=== PATIENT | female | born 1990 | race Caucasian/White ===

== ENCOUNTER 2023-10-19 16:59 | Emergency (ER) | payer BC, SELFPAY ==
--- NOTE | ~2023-10-19 | XR_ITS ---
EXAMINATION: XR ankle LT min 3V XR foot LT 2V CLINICAL INFORMATION: Ankle pain, fall, fracture, twisted ankle COMPARISON: None. TECHNIQUE: AP and oblique views left ankle, 2 images. AP, lateral and oblique views of the left foot, 3 images. FINDINGS: Left ankle: Oblique fracture through the distal fibular diaphysis with intra-articular extension to the lateral ankle mortise. Ankle mortise remains symmetric. Soft tissue swelling over the lateral malleolus. No radiopaque foreign body. Left foot: No ankle joint effusion. Osseous structures of the foot are in anatomic alignment with joint spaces maintained. No acute fracture in the foot. No focal soft tissue swelling in the foot. No radiopaque foreign body. XR/XR foot LT 2V IMPRESSION: 1. Oblique fracture through the distal fibular diaphysis with intra-articular extension to the lateral ankle mortise. 2. No acute fracture in the left foot.
--- NOTE | ~2023-10-19 | XR_ITS ---
EXAMINATION: XR ankle LT min 3V XR foot LT 2V CLINICAL INFORMATION: Ankle pain, fall, fracture, twisted ankle COMPARISON: None. TECHNIQUE: AP and oblique views left ankle, 2 images. AP, lateral and oblique views of the left foot, 3 images. FINDINGS: Left ankle: Oblique fracture through the distal fibular diaphysis with intra-articular extension to the lateral ankle mortise. Ankle mortise remains symmetric. Soft tissue swelling over the lateral malleolus. No radiopaque foreign body. Left foot: No ankle joint effusion. Osseous structures of the foot are in anatomic alignment with joint spaces maintained. No acute fracture in the foot. No focal soft tissue swelling in the foot. No radiopaque foreign body. XR/XR ankle LT min 3V IMPRESSION: 1. Oblique fracture through the distal fibular diaphysis with intra-articular extension to the lateral ankle mortise. 2. No acute fracture in the left foot.
[2023-10-19 17:08] VITALS: BP 105/65; PULSE 78; RESP 16; TEMP 36.7; O2SAT 98; BMI 26.6
--- NOTE | 2023-10-19 17:14 | ED_ITS ---
HPI - General Adult General Chief complaint: Extremity Injury, Lower Stated complaint: twisted ankle, heard a crack Time Seen by Provider: 10/19/23 18:05 Related Data Previous Rx's ?Medication ?Instructions ?Recorded oxycodone 5 mg tablet 5 mg PO Q6H PRN pain #20 tabs 10/19/23 Allergies Allergy/AdvReac Type Severity Reaction Status Date / Time No Known Allergies Allergy Verified 10/19/23 17:13 [facility] Social History Social History Advance Directives: No Advance Directives Information Provided: No Do you have a plan to hurt others: No Plan Physical Exam ED Vital Signs: Vital Signs - 24 hr 10/19/23 17:08 10/19/23 18:42 Temperature 98.1 F 98.1 F Pulse Rate 78 78 Respiratory Rate 16 16 Blood Pressure 105/65 105/65 Pulse Oximetry 98 98 Oxygen Delivery Method Room Air Room Air BMI result Body Mass Index 26.6 Course Course Course Narrative: RME: done by DAVID Macias. Patient states playing with her dog and hearing crack in her ankle while twtisting her ankle to prevent a fall. patient denies hitting head or loss of consciosuness. xrays ordered Medications Administered Discontinued Medications Generic Name Dose Route Start Last Admin Trade Name Freq PRN Reason Stop Dose Admin Ibuprofen 600 mg 10/19/23 18:13 10/19/23 18:22 Ibuprofen 600 Mg Tablet PO 10/19/23 18:14 600 mg ONCE ONE Administration Oxycodone HCl 10 mg 10/19/23 18:13 10/19/23 18:22 Oxycodone Hcl Immed Release 5 Mg Tablet PO 10/19/23 18:14 10 mg ONCE ONE Administration Discharge Plan Discharge Clinical Impression: Closed left fibular fracture Patient Disposition: Home, Self-Care Instructions: Ankle Fracture (ED) Additional Instructions: Wear the boot and use crutches for ambulation Keep left leg elevated Pain medication as prescribed Usually takes 6-8 weeks to heal completely Follow with ortho Prescriptions: New oxycodone 5 mg tablet 5 mg PO Q6H PRN (Reason: pain) Qty: 20 0RF Rx Instructions: Partial Fill upon patient request. Referrals: Kirby Ramires MD [Physician] - 2 weeks Stand Alone Forms: Work/School Release Interventions: ED Discharge Assessment Last Done: 10/19/23 18:42 Discharge Date/Time: 10/19/23 18:42 Print Language: Citizen Of [place]
[2023-10-19] MEDS: Ibuprofen 600 MG TABLET PO (18:22)
[2023-10-19] MEDS: oxyCODONE HCl Immed Release 5 MG TABLET 10 MG PO (18:22)
--- NOTE | 2023-10-19 18:24 | ED_ITS ---
HPI - Extremity Injury (Lower) General Chief Complaint: Extremity Injury, Lower Stated Complaint: twisted ankle, heard a crack Time Seen by Provider: 10/19/23 18:05 Source: patient Mode of arrival: ambulatory Limitations: no limitations History of Present Illness ED Provider: mihaela HPI Narrative: Apparently patient was playing with her dog tripped heard the crack in the left ankle lateral malleolus comes here with increased swelling and painful to ambulate Related Data Previous Rx's ?Medication ?Instructions ?Recorded oxycodone 5 mg tablet 5 mg PO Q6H PRN pain #20 tabs 10/19/23 Allergies Allergy/AdvReac Type Severity Reaction Status Date / Time No Known Allergies Allergy Verified 10/19/23 17:13 Review of Systems 2 Review of Systems: Yes all other systems are reviewed and are negative [facility] Social History Social History Advance Directives: No Advance Directives Information Provided: No Do you have a plan to hurt others: No Plan Physical Exam 2 Vital Signs: Vital Signs: Last Vital Signs Temp 98.1 F 10/19/23 17:08 Pulse 78 10/19/23 17:08 Resp 16 10/19/23 17:08 BP 105/65 10/19/23 17:08 Pulse Ox 98 10/19/23 17:08 O2 Del Method Room Air 10/19/23 17:08 BMI result Body Mass Index 26.6 Extrem: Ankle/foot/toe images: 1. Swelling and tenderness lateral malleolus left foot neurovascular intact Medications Administered Discontinued Medications Generic Name Dose Route Start Last Admin Trade Name Freq PRN Reason Stop Dose Admin Ibuprofen 600 mg 10/19/23 18:13 10/19/23 18:22 Ibuprofen 600 Mg Tablet PO 10/19/23 18:14 600 mg ONCE ONE Administration Oxycodone HCl 10 mg 10/19/23 18:13 10/19/23 18:22 Oxycodone Hcl Immed Release 5 Mg Tablet PO 10/19/23 18:14 10 mg ONCE ONE Administration Medical Decision Making Medical Decision Making [facility] Narrative: Patient with left lower and fibula fracture ortho boot was given to the patient along with crutches advised to follow up with Orthopedics Independent Interpretation I performed an independent interpretation of an: Plain X-Ray Radiology Impression Discussion of test interpretation with radiology: I have reviewed the radiologist's reading. Discharge Plan Discharge Clinical Impression: Closed left fibular fracture Patient Disposition: Home, Self-Care Instructions: Ankle Fracture (ED) Additional Instructions: Wear the boot and use crutches for ambulation Keep left leg elevated Pain medication as prescribed Usually takes 6-8 weeks to heal completely Follow with ortho Prescriptions: New oxycodone 5 mg tablet 5 mg PO Q6H PRN (Reason: pain) Qty: 20 0RF Rx Instructions: Partial Fill upon patient request. Referrals: Kirby Ramires MD [Physician] - 2 weeks Print Language: Spanish
[2023-10-19 18:42] VITALS: BP 105/65; PULSE 78; RESP 16; TEMP 36.7; O2SAT 98
== END 2023-10-19 18:42 | disposition home or self-care (01) ==
PROVIDERS: Emergency Provider Internal Medicine
DX: S82.832A Other fracture of upper and lower end of left fibula, initial encounter for closed fracture (principal); X58.XXXA Exposure to other specified factors, initial encounter; Y93.89 Activity, other specified; Y92.9 Unspecified place or not applicable; Y99.9 Unspecified external cause status
CPT/HCPCS: 73610; 73620; 99283

== ENCOUNTER 2023-10-22 10:17 | Outpatient (REF) | payer BC, SELFPAY ==
--- NOTE | ~2023-10-22 | XR_ITS ---
EXAMINATION: XR ANKLE, LEFT CLINICAL INFORMATION: Left ankle pain. COMPARISON: Left ankle and foot radiographs dated 10/19/2023. TECHNIQUE: AP, lateral, and mortise views of the left ankle. FINDINGS: Oblique, mildly displaced fracture redemonstrated through the distal fibular metaphysis in unchanged anatomic alignment with lateral cortical step off measuring up to 0.2 cm. Mild lateral subluxation of the talar dome in relation to the tibial plafond. Anatomic alignment is similar when compared to the prior radiographs. No significant interval new bone/callus formation. No new fracture. No joint space narrowing or marginal osteophytes. Circumferential soft tissue swelling. XR/XR ankle LT min 3V IMPRESSION: Distal fibular fracture in unchanged anatomic alignment with mild lateral subluxation of the talar dome in relation to the tibial plafond. No significant interval new bone/callus formation.
== END 2023-10-22 10:18 | disposition home or self-care (01) ==
LOC: HO.HOSX 10:17
PROVIDERS: Visit Provider Physician Assistant
DX: M25.572 Pain in left ankle and joints of left foot (principal)
CPT/HCPCS: 73610

== ENCOUNTER 2023-10-22 14:02 | Outpatient (AMB) | payer BC, SELFPAY ==
--- NOTE | 2023-10-22 14:19 | A.OFFVIS_ITS ---
Intake Visit Reasons: FC- left ankle fx, 10/19/23 Intake Note: Sammy is a 33 year old female who presents today for a evaluation of her left ankle fx, DOI 10/19/23. Patient reports playing with her dog and tried to move out the way until she missed stepped and heard a crack in her left ankle. Currently having some mild pain in her ankle, denies numbness and tingling. Allergies No Known Allergies Allergy (Verified 10/22/23 14:21) HPI HPI FC- left ankle fx, 10/19/23: Details: 33-year-old female who presents in the office today, as a new patient, for evaluation of left ankle pain. She was seen in the ER on 10/19/2023 with increased swelling and pain while ambulating status post tripping over her dog causing her to twist her left ankle.?She was placed in the boot and was supplied crutches for ambulation.?She was prescribed oxycodone 5 mg PO Q6H PRN.? ? While in the office today, the patient reports she was playing with her dog when she attempted ?to move out of the way? causing her to miss a step. She reports she ?heard a crack? in the left ankle. She reports mild pain in the office. She denies numbness or tingling.? [facility] Social History (Updated 10/22/23 @ 14:22 by Patience Owusu) Alcohol intake: never Patient Tobacco Use Status: Former Tobacco user Years Smoked: 3 weeks quit Review of Systems Const All systems reviewed & are unremarkable except as noted in HPI and below Physical Exam Const General: cooperative and no acute distress Orientation/consciousness: patient oriented x3 Resp Effort & Inspection: normal respiratory effort and able to speak in complete sentences Cardio Peripheral pulses: Peripheral pulses 2+ throughout Skin General skin exam: no rashes or lesions noted Neuro General: patient oriented x3 Extrem Other: Left ankle: Moderate edema along the lateral malleolus. Able to?slightly dorsiflex and plantarflex but it is limited due to pain. Sensation intact. Pedal pulse intact. Assessment & Plan Assessment & Plan (1) Fracture of distal end of left fibula: Code(s): S82.832A - Other fracture of upper and lower end of left fibula, initial encounter for closed fracture Category: Medical Plan Ms. Kothari is a 33-year-old female who presents in the office today, as a new patient, for evaluation of left ankle pain. She was seen in the ER on 10/19/2023 with increased swelling and pain while ambulating status post tripping over her dog causing her to twist her left ankle.?She was placed in the boot and was supplied crutches for ambulation.?She was prescribed oxycodone 5 mg PO Q6H PRN.? ? While in the office today, the patient reports she was playing with her dog when she attempted ?to move out of the way? causing her to miss a step. She reports she ?heard a crack? in the left ankle. She reports mild pain in the office. She denies numbness or tingling. Dr. Ramires was available to speak with me but was unable to see the patient, and a collaborative treatment plan was made. The patient was placed back into the walk boot, she may weight bearing as tolerated. She does have an upcoming vacation planned in about 6 weeks to [place].?At her follow-up appointment, we will evaluate the patient for the possibility of being placed in a lace-up ankle brace. Follow-up will be in 4 weeks with repeat x-rays, or sooner if needed. ? X-rays of the?left ankle which were obtained while in the office today and were reviewed by me, Elen Nathan PA-C, redemonstrated distal fibular fracture. ? Orders: Orders XR ankle LT min 3V 10/22/23 M25.579 - Pain in unspecified ankle and joints of unspecified foot Patient Instructions: Scribed by Long Hardin medical claims manager, for Loida Nathan PA-C on 10/22/2023 at?2:30 PM EST.? Corrections made by Patricia Velarde medical claims manager, for Loida Nathan PA-C on 10/22/2023 at 3:361 pm, EST.? Coding Level of Care Code New Pt Level 4 (85126) Diagnoses Fracture of distal end of left fibula S82.832A
== END 2023-10-22 14:53 | disposition home or self-care (01) ==
PROVIDERS: Visit Provider Physician Assistant
DX: S82.832A Other fracture of upper and lower end of left fibula, initial encounter for closed fracture (principal)
CPT/HCPCS: 99203

== ENCOUNTER 2023-11-06 09:18 | Outpatient (REF) | payer BC, SELFPAY ==
--- NOTE | ~2023-11-06 | XR_ITS ---
EXAMINATION: XR ANKLE, RIGHT XR ANKLE, LEFT CLINICAL INFORMATION: Ankle pain. COMPARISON: Multiple prior left ankle radiographs, most recent dated 10/22/2023. TECHNIQUE: AP, lateral, and mortise views of the right and left ankle were obtained. FINDINGS: RIGHT ANKLE: No acute fracture or dislocation. The ankle mortise is maintained. No joint space narrowing or marginal osteophytes. No osseous erosion. No abnormal soft tissue calcification. LEFT ANKLE: Redemonstration of an oblique distal fibular diametaphyseal fracture in unchanged anatomic alignment with mild lateral fixation of the tibial plafond. Anatomic alignment is similar when compared to the prior radiographs. Persistent lateral cortical step off measures up to 0.2 cm. No significant interval new bone/callus formation. Persistent circumferential soft tissue swelling. XR/XR ankle RT min 3V IMPRESSION: RIGHT ANKLE: Unremarkable examination. LEFT ANKLE: Distal fibular fracture in unchanged anatomic alignment with mild lateral fixation of the tibial plafond. Persistent circumferential soft tissue swelling. No significant interval new bone/callus formation.
--- NOTE | ~2023-11-06 | XR_ITS ---
EXAMINATION: XR ANKLE, RIGHT XR ANKLE, LEFT CLINICAL INFORMATION: Ankle pain. COMPARISON: Multiple prior left ankle radiographs, most recent dated 10/22/2023. TECHNIQUE: AP, lateral, and mortise views of the right and left ankle were obtained. FINDINGS: RIGHT ANKLE: No acute fracture or dislocation. The ankle mortise is maintained. No joint space narrowing or marginal osteophytes. No osseous erosion. No abnormal soft tissue calcification. LEFT ANKLE: Redemonstration of an oblique distal fibular diametaphyseal fracture in unchanged anatomic alignment with mild lateral fixation of the tibial plafond. Anatomic alignment is similar when compared to the prior radiographs. Persistent lateral cortical step off measures up to 0.2 cm. No significant interval new bone/callus formation. Persistent circumferential soft tissue swelling. XR/XR ankle LT min 3V IMPRESSION: RIGHT ANKLE: Unremarkable examination. LEFT ANKLE: Distal fibular fracture in unchanged anatomic alignment with mild lateral fixation of the tibial plafond. Persistent circumferential soft tissue swelling. No significant interval new bone/callus formation.
== END 2023-11-06 09:19 | disposition home or self-care (01) ==
LOC: HO.HOSX 09:18
PROVIDERS: Visit Provider Physician Assistant
DX: S82.832D Other fracture of upper and lower end of left fibula, subsequent encounter for closed fracture with routine healing (principal); M25.571 Pain in right ankle and joints of right foot
CPT/HCPCS: 29405; 73610

== ENCOUNTER 2023-11-06 13:16 | Outpatient (AMB) | payer BC, SELFPAY ==
--- NOTE | 2023-11-06 13:28 | A.OFFVIS_ITS ---
Vital Signs 11/06/23 13:32 Height 5 ft 3 in Weight 150 lb BMI 26.6 Intake Visit Reasons: FC- left ankle fx, 10/19/23, repeat x-rays Intake Note: Sammy is a 33 year old female who presents today for a evaluation of her left ankle fx, DOI 10/19/23. Currently having some inflammation around her ankle about few days ago. Allergies No Known Allergies Allergy (Verified 10/22/23 14:21) HPI HPI FC- left ankle fx, 10/19/23, repeat x-rays: Details: 33-year-old female who presents in the office today for a follow-up of a left distal fibula fracture, which occurred on 10/19/2023 status post tripping over her dog causing her to twist her left ankle. I last saw the patient in the office on 10/22/2023 when she was placed back into the walking boot to weight bear as tolerated. ? ? Patient has a vacation to [place] on 11/30/2023. She would like to be able to go dance and ?be free?. She expressed wanted to go on her trip without the boot and then return in a week to discuss surgery.? ? While in the office today, the patient reported inflammation in the ankle beginning a few days prior. She reports she has been wearing the boot. She confirms weight bearing on the left lower extremity wth crutches. ? [facility] Social History (Updated 11/06/23 @ 13:31 by Patience Owusu) Alcohol intake: never Patient Tobacco Use Status: Former Tobacco user Years Smoked: 3 weeks quit Current occupational status: employed Current occupation: Sales Review of Systems Const All systems reviewed & are unremarkable except as noted in HPI and below Physical Exam Vital Signs: BMI result Body Mass Index 26.6 Const General: cooperative and no acute distress Orientation/consciousness: patient oriented x3 Resp Effort & Inspection: normal respiratory effort and able to speak in complete sentences Cardio Peripheral pulses: Peripheral pulses 2+ throughout Skin General skin exam: no rashes or lesions noted Neuro General: patient oriented x3 Extrem Other: Left ankle: Mild edema along the lateral malleolus. Able to?slightly dorsiflex and plantarflex but it is limited due to pain. Sensation intact. Pedal pulse intact. Office Procedures Casting/Splints [id number] Leg Cast Application Procedure code (CPT) selection complete Assessment & Plan Assessment & Plan (1) Fracture of distal end of left fibula: Code(s): S82.832A - Other fracture of upper and lower end of left fibula, initial encounter for closed fracture Category: Medical Plan Ms. Kothari is a 33-year-old female who presents in the office today for a follow-up of a left distal fibula fracture, which occurred on 10/19/2023 status post tripping over her dog causing her to twist her left ankle. I last saw the patient in the office on 10/22/2023 when she was placed back into the walking mp ot to weight bear as tolerated. ? ? Patient has a vacation to [place] on 11/30/2023. She would like to be able to go dance and ?be free?. She expressed going on her trip without the boot and then return in a week to discuss surgery.? ? While in the office today, the patient reported inflammation in the ankle beginning a few days prior. She reports she has been wearing the boot. She confirms weight bearing on the left lower extremity.? ? Dr. Ramires was available to see the patient while in the office today and a collaborative treatment plan was made. Due to the patient having a scheduled trip to [place] on 11/30/2023 we have decided to x-ray the right ankle for comparison purposes. Upon review of the x-rays we have agreed to treat the left ankle non-operatively. She will be placed in a short leg cast, custom made, while in the office today. She will remain non-weight bearing. Patient was educated on cast maintenance with instructions to keep the cast clean, dry, and intact. However, should the cast become wet, dirty, or there is a concern please call the office immediately for a cast change. She was sent home with her walking boot and asked to bring it with her for her follow-up with anticipation of transitioning into it at that time. Follow-up will be on 11/[address] Ramires in the office, or sooner if needed. ? ? X-rays of the left ankle which were obtained while in the office today and were reviewed by me, Loida Nathan PA-C, revealed redemonstration of lateral malleolar fracture.? Orders: Orders XR ankle LT min 3V Today M25.579 - Pain in unspecified ankle and joints of unspecified foot XR ankle RT min 3V Today M25.579 - Pain in unspecified ankle and joints of unspecified foot Patient Instructions: Scribed by Patricia Velarde medical support assistant, for Loida Nathan PA-C on 11/06/2023 at 1:18 pm, EST.? Coding Level of Care Code Global (37445) Diagnoses Fracture of distal end of left fibula S82.832A CPT Codes Casting - CPT: 35631-Lsgtk Leg Cast Application ([id number])
[2023-11-06 13:32] VITALS: BMI 26.6
== END 2023-11-06 14:55 | disposition home or self-care (01) ==
PROVIDERS: Visit Provider Physician Assistant
DX: S82.832A Other fracture of upper and lower end of left fibula, initial encounter for closed fracture (principal)
CPT/HCPCS: 29405; 99213

== ENCOUNTER 2023-11-27 10:06 | Outpatient (AMB) | payer BC, SELFPAY ==
--- NOTE | 2023-11-27 10:30 | MHC.OFFVIS ---
Vital Signs 11/27/23 10:31 Height 5 ft 3 in Weight 150 lb BMI 26.6 Intake Visit Reasons: OV - left distal fibula fx, DOI 10/19/23 Intake Note: Sammy is a 33 year old female who presents today for a evaluation of her left distal fibula fx, DOI 10/19/23. Currently she is having no pain at the moment. Allergies No Known Allergies Allergy (Verified 11/27/23 10:31) HPI HPI OV - left distal fibula fx, DOI 10/19/23: Details: 33-year-old female who presents in the office today for a follow-up of a left distal fibula fracture, which occurred on 10/19/2023 status post tripping over her dog causing her to twist her left ankle. I last saw the patient in the office on 11/06/23 when she was placed in a short leg cast and was instructed to remain non-weight bearing. ? ? While in the office today, the patient reports she is doing better with no pain. She expresses she does not want to wear a walking boot due to it being uncomfortable and bulky.? ? Patient has a vacation to [place] on 11/30/2023.? [facility] Social History Alcohol intake: never Patient Tobacco Use Status: Former Tobacco user Years Smoked: 3 weeks quit Current occupational status: employed Current occupation: Sales Review of Systems Const All systems reviewed & are unremarkable except as noted in HPI and below Physical Exam Vital Signs: BMI result Body Mass Index 26.6 Const General: cooperative, healthy appearing and no acute distress Resp Effort & Inspection: normal respiratory effort and able to speak in complete sentences Cardio Rate: regular rate Peripheral pulses: Peripheral pulses 2+ throughout GI Palpation (GI): Soft to palpation Skin Lesions: no lesions Rashes: no rashes Extrem Other: Left ankle: Normal to inspection. No ecchymosis, erythema, or edema. No tenderness to palpation over the distal fibula over the fracture site. Slight stiffness with ROM in all planes. Negative anterior drawer. Sensation intact. Pedal Pulse intact.?? Assessment & Plan Assessment & Plan (1) Fracture of distal end of left fibula: Code(s): S82.832A - Other fracture of upper and lower end of left fibula, initial encounter for closed fracture Category: Medical Plan Ms. Kothari is a 33-year-old female who presents in the office today for a follow-up of a left distal fibula fracture, which occurred on 10/19/2023 status post tripping over her dog causing her to twist her left ankle. I last saw the patient in the office on 11/06/23 when she was placed in a short leg cast and was instructed to remain non-weight bearing. ? ? While in the office today, the patient reports she is doing better with no pain. She expresses she does not want to wear a walking boot due to it being uncomfortable and bulky.? ? Patient has a vacation to [place] on 11/30/2023.? ? The case was discussed, and imaging was reviewed by Dr. Ramires who was able to speak with me but unable to see the patient; and a collaborative treatment plan was made. She will be placed in a tall walking boot to be worn until she leaves for her trip on 11/30/23. She was supplied with a lace-up ankle brace, off the shelf. We discussed using pain as her guide while on her trip. Follow-up will be in four weeks, or sooner if needed. ? ? X-rays of the left ankle which were obtained while in the office today and were reviewed by me, Loida Nathan PA-C, revealed routine healing of a left distal fibula fracture. ? Orders: Orders XR ankle LT min 3V Today M25.579 - Pain in unspecified ankle and joints of unspecified foot Patient Instructions: Scribed by Patricia Velarde vice president medical affairs, for Loida Nathan PA-C on 11/27/2023 at 10:20 am, EST.? Coding Level of Care Code Global (42711) Diagnoses Fracture of distal end of left fibula S82.832A
[2023-11-27 10:31] VITALS: BMI 26.6
== END 2023-11-27 11:02 | disposition home or self-care (01) ==
PROVIDERS: Visit Provider Physician Assistant
DX: S82.832A Other fracture of upper and lower end of left fibula, initial encounter for closed fracture (principal)
CPT/HCPCS: 99213

== ENCOUNTER 2023-11-27 12:53 | Outpatient (REF) | payer BC, SELFPAY ==
--- NOTE | ~2023-11-27 | XR_ITS ---
EXAMINATION: XR ANKLE, LEFT CLINICAL INFORMATION: Pain ankle. COMPARISON: November 06, 2023. TECHNIQUE: AP, lateral, and mortise views of the left ankle. FINDINGS: Redemonstration of oblique distal fibular diametaphyseal fracture with similar anatomic alignment. Anatomic alignment is similar. Persistent lateral cortical step-off measuring up to 2 mm. Diffuse soft tissue swelling. XR/XR ankle LT min 3V IMPRESSION: Redemonstration of oblique distal fibular diametaphyseal fracture with similar anatomic alignment.
== END 2023-11-27 12:54 | disposition home or self-care (01) ==
LOC: HO.HOSX 12:53
PROVIDERS: Visit Provider Physician Assistant
DX: M25.572 Pain in left ankle and joints of left foot (principal)
CPT/HCPCS: 73610

== ENCOUNTER 2023-12-25 10:27 | Outpatient (REF) | payer BC, SELFPAY | END 2023-12-25 10:28 | disposition home or self-care (01) | LOC: HO.HOSX 10:27 | PROVIDERS: Visit Provider Physician Assistant | DX: Z13.89 Encounter for screening for other disorder (principal) ==

== ENCOUNTER 2023-12-25 11:09 | Outpatient (AMB) | payer BC, SELFPAY ==
--- NOTE | 2023-12-25 11:16 | A.OFFVIS_ITS ---
Intake Visit Reasons: OV - left distal fibula fx, DOI 10/19/23 Intake Note: Sammy is a 33 year old female who presents today for a follow up s/p left distal fibula fx, DOI 10/19/23. Currently she is having some mild pain in her ankle. Lace up ankle brace wasn't giving her relief but the boot provided her more relief. Allergies No Known Allergies Allergy (Verified 12/25/23 11:21) HPI HPI OV - left distal fibula fx, DOI 10/19/23: Details: 33-year-old female who presents in the office today for a follow-up of a left distal fibula fracture, which occurred on 10/19/2023 status post tripping over her dog causing her to twist her left ankle. I last saw the patient in the office on 11/27/23 when she was placed in a tall walking boot to wear until her trip on 11/30/23. She was supplied with a lace-up ankle brace for support. ? ? While in the office today, the patient reports the lace up ankle brace did not give her relief. ? [facility] Social History Alcohol intake: never Patient Tobacco Use Status: Former Tobacco user Years Smoked: 3 weeks quit Current occupational status: employed Current occupation: Sales Review of Systems Const All systems reviewed & are unremarkable except as noted in HPI and below Physical Exam Const General: cooperative, healthy appearing and no acute distress Resp Effort & Inspection: normal respiratory effort and able to speak in complete sentences Cardio Rate: regular rate Peripheral pulses: Peripheral pulses 2+ throughout GI Palpation (GI): Soft to palpation Skin Lesions: no lesions Rashes: no rashes Extrem Other: Left ankle: Normal to inspection. No ecchymosis, erythema, or edema. Mild tenderness to palpation over the distal fibula over the fracture site. Stiffness with ROM in all planes. Negative anterior drawer. Sensation intact. Pedal Pulse intact.?? Assessment & Plan Assessment & Plan (1) Fracture of distal end of left fibula: Code(s): S82.832A - Other fracture of upper and lower end of left fibula, initial encounter for closed fracture Category: Medical Plan Ms. Kothari is a 33-year-old female who presents in the office today for a follow-up of a left distal fibula fracture, which occurred on 10/19/2023 status post tripping over her dog causing her to twist her left ankle. I last saw the patient in the office on 11/27/23 when she was placed in a tall walking boot to wear until her trip on 11/30/23. She was supplied with a lace-up ankle brace for support. ? ? While in the office today, the patient reports the lace up ankle brace did not give her relief.? ? We discussed that edema is normal for up to a year. She will be referred for physical therapy to work on ROM due to stiffness and edema. She will remain in the boot for no more than two weeks with the assistance of PT to help her wean out. Follow-up will be in six weeks, or sooner if needed. ? ? X-rays of the left ankle which were obtained while in the office today and were reviewed by me, Loida Nathan PA-C, revealed routine healing of a left distal fibula fracture.? Orders: Orders XR ankle LT min 3V Today M25.579 - Pain in unspecified ankle and joints of unspecified foot Patient Instructions: Scribed by Patricia Velarde, medical records field technician, for Loida Nathan PA-C on 12/25/2023 at 12:03 pm, EST.? Coding Level of Care Code Global (04711) Diagnoses Fracture of distal end of left fibula S82.832A
== END 2023-12-25 11:36 | disposition home or self-care (01) ==
PROVIDERS: Visit Provider Physician Assistant
DX: S82.832A Other fracture of upper and lower end of left fibula, initial encounter for closed fracture (principal)
CPT/HCPCS: 99213

== ENCOUNTER 2024-02-10 12:40 | Outpatient (REF) | payer BC, SELFPAY ==
--- NOTE | ~2024-02-10 | XR_ITS ---
EXAMINATION: XR ANKLE LEFT 3 VIEWS CLINICAL INFORMATION: Pain in unspecified ankle and joints of unspecified foot M25.579. COMPARISON: XR Left ankle 11/27/2023 TECHNIQUE: AP, lateral, and oblique views of the left ankle. FINDINGS: There has only been minimal interval callus formation through the known distal fibular fracture. Fracture line is still readily visualized. Ankle mortise is maintained. No fracture of the visualized distal tibia. No overlying soft tissue swelling. XR/XR ankle LT min 3V IMPRESSION: Only minimal interval callus formation through the known distal fibular fracture. Electronically signed by: Paul Lamar MD 04/08/2024 09:17 AM [facility]
== END 2024-02-10 12:41 | disposition home or self-care (01) ==
LOC: HO.HOSX 12:40
PROVIDERS: Visit Provider Physician Assistant
DX: M25.572 Pain in left ankle and joints of left foot (principal)
CPT/HCPCS: 73610

== ENCOUNTER 2024-02-10 12:40 | Outpatient (AMB) | payer BC, SELFPAY ==
[2024-02-10 12:45] VITALS: BMI 26.6
--- NOTE | 2024-02-10 12:45 | A.OFFVIS_ITS ---
Vital Signs 02/10/24 12:45 Height 5 ft 3 in Weight 150 lb BMI 26.6 Intake Visit Reasons: OV - Lt distal fibula fx, DOI 10/19/23(ROM check) Intake Note: Sammy is a 33 year old female who presents today for a ROM check s/p left distal fibula fx, DOI 10/19/23. Patient reports that she has some continued mild discomfort of the left ankle. This is mostly felt while ambulating at home without her boot, she notices that she is unable to climb stair like normal as she has to use her right leg as her dominant leg while climbing and descending stairs. She also complains of a pain in the anterior aspect of the lower leg. She has not done physical therapy as she does not have a primary care and is unable to get in without a PCP Allergies No Known Allergies Allergy (Verified 12/25/23 11:21) HPI HPI OV - Lt distal fibula fx, DOI 10/19/23(ROM check): Details: 33-year-old female who presents in the office today for a follow-up of left distal fibula fracture, which occurred on 10/19/23 status post tripping over her dog causing her to twist her left ankle. I last saw the patient in the office on 12/25/23, when she was referred to physical therapy and encouraged to remain in the boot for no more than 2 weeks with the assistance of PT. While in the office today, the patient presented today in the tall walking boot. She reports experiencing mild continued discomfort of the left ankle, which is prevalent while ambulating at home without her boot. She also complains of pain in the anterior aspect of the left lower extremity. She has noticed difficulty ambulating up and down the stairs. Therefore, she uses her right lower extremity more when ambulating the stairs. The patient has not attended physical therapy yet because of not having a primary care provider. She is unable to be seen by a PCP until March 2024. 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 No ecchymosis, erythema, or edema. Mild tenderness to palpation over the distal fibula over the fracture site. Stiffness with ROM in all planes. Negative anterior drawer. Sensation intact. Pedal Pulse intact.?? Assessment & Plan Assessment & Plan (1) Fracture of distal end of left fibula: Code(s): S82.832A - Other fracture of upper and lower end of left fibula, initial encounter for closed fracture Category: Medical Plan Ms Mishra is a 33-year-old female who presents in the office today for a follow- up of left distal fibula fracture, which occurred on 10/19/23 status post tripping over her dog causing her to twist her left ankle. I last saw the patient in the office on 12/25/23, when she was referred to physical therapy and encouraged to remain in the boot for no more than 2 weeks with the assistance of PT. While in the office today, the patient presented today in the tall walking boot. She reports experiencing mild continued discomfort of the left ankle, which is prevalent while ambulating at home without her boot. She also complains of pain in the anterior aspect of the left lower extremity. She has noticed difficulty ambulating up and down the stairs. Therefore, she uses her right lower extremity more when ambulating the stairs. The patient has not attended physical therapy yet because of not having a primary care provider. She is unable to be seen by a PCP until March 2024. I educated the patient to discontinue the boot at this time. We discussed the role of physical therapy, however, she is currently trying to establish care with a primary care provider in order to have insurance coverage for therapy sessions. I have placed a new order for physical therapy today. She is unable to establish care with PCP until March 2024. Therefore, I have provided a handout of ankle exercises that she can perform at home to help with the stiffness that she has developed. Follow-up will be in 6 weeks, or sooner if needed. X-rays of the left lower extremity which were obtained while in the office today and were reviewed by me, Loida Nathan PA-C, revealed routine healing of left distal fibula fracture. Orders: Orders XR ankle LT min 3V 02/10/24 M25.579 - Pain in unspecified ankle and joints of unspecified foot PT Evaluation and Treatment 02/10/24 S82.832A - Other fracture of upper and lower end of left fibula, initial encounter for closed fracture Patient Instructions: Scribed by Samia Arellano medical records supervisor, for Loida Nathan PA-C on 02/10/24 at 1:02 pm EST. Coding Level of Care Code Est Pt Level 3 (02804) Diagnoses Fracture of distal end of left fibula S82.832A
== END 2024-02-10 13:32 | disposition home or self-care (01) ==
PROVIDERS: Visit Provider Physician Assistant
DX: S82.832A Other fracture of upper and lower end of left fibula, initial encounter for closed fracture (principal)
CPT/HCPCS: 99213

== ENCOUNTER 2024-04-06 14:25 | Outpatient (REF) | payer BC, SELFPAY | END 2024-04-06 14:26 | disposition home or self-care (01) | LOC: HO.HOSX 14:25 | PROVIDERS: Visit Provider Physician Assistant | DX: Z13.89 Encounter for screening for other disorder (principal) ==